=== PATIENT | male | born 1965 | race Caucasian/White ===

== ENCOUNTER 2021-07-24 12:49 | Emergency (ER) | payer OTHER ==
[~2021-07-24] VITALS: Ht 180.3 cm; Wt 80.7 kg
[~2021-07-24 12:49] MED LIST: PRILOSEC20 MG PO
== END 2021-07-24 15:28 | disposition home or self-care (01) ==
LOC: ED 12:49
DX: S63.125A Dislocation of interphalangeal joint of left thumb, initial encounter (principal); W22.8XXA Striking against or struck by other objects, initial encounter
CPT/HCPCS: 73140; 99283-25

== ENCOUNTER 2024-09-01 06:28 | Day surgery (SDC) | payer OTHER ==
[~2024-09-01] VITALS: Ht 180.3 cm; Wt 84.1 kg
[~2024-09-01 06:28] MED LIST changes: +MIDAZOLAM HCL 5 MG/5 ML VIAL IV PRN; +fentaNYL citrate 100 MCG/2 ML VIAL IV PRN
[2024-09-01 06:42] VITALS: BP 113/74
[2024-09-01] MEDS ORDERED: fentaNYL citrate 100 MCG/2 ML VIAL ONE (06:58)
[2024-09-01] MEDS ORDERED: MIDAZOLAM HCL 5 MG/5 ML VIAL ONE (06:58)
[2024-09-01] MEDS ORDERED: LACTATED RINGER'S 1,000 ML IV SCH (07:00)
[2024-09-01] MEDS ORDERED: IBLOOD GLUCOSE TEST STRIP 1 EA TEST VI PRN (07:00)
[2024-09-01] MEDS ORDERED: LIDOCAINE HCL 1% 5 ML SDV INJ ONE (07:00)
--- NOTE | 2024-09-01 08:24 | NUR ---
09/01/24 0824 Inés Reinoso 0815 PT ARRIVED IN PACU SLEEPY WITH NO C/O'S. ABD SOFT AND PASSING FLATUS. 08 RESTING. REU.
[2024-09-01 08:46] VITALS: BP 107/67
--- NOTE | 2024-09-02 12:42 | OR ---
[facility] [address] [place], [place] [address] Signed DATE OF OPERATION: 09/01/2024 SURGEON: Domenica Allen MD PREOPERATIVE DIAGNOSIS: Colon screening. POSTOPERATIVE DIAGNOSIS: Normal colon to cecum. PROCEDURE: Total colonoscopy to cecum. ANESTHESIA: Intravenous sedation, fentanyl 150 mcg, Versed 6 mg. INDICATIONS FOR THE PROCEDURE: This 59-year-old white man is patient of Dr. Duncan Courtney, who is referred for screening colonoscopy. He last underwent colonoscopy in 2012, which was normal. He has no current symptoms of bleeding, diarrhea, or constipation and no family history of colon cancer. He is admitted to undergo screening colonoscopy. He understands the risk of bleeding, infection, and perforation. FINDINGS: The prep was adequate. Complete colonoscopy was undertaken of the cecum with full intubation of the cecum. He had no evidence of polyps, diverticular formation, colitis, or cancer. Retroflexed view was normal as well. DESCRIPTION OF PROCEDURE: The patient was brought to the endoscopy suite and placed in lateral decubitus position, given intravenous sedation to the point of slurred speech and nystagmus. Digital rectal examination was normal. An Olympus video colonoscope was passed into the rectum and manipulated throughout the colon ultimately intubating the cecum itself. The ileocecal valve and appendiceal orifice were normal. Scope was withdrawn. Examination throughout showed no sign of abnormality, specifically no polyps, diverticular formation, colitis, or cancer. Retroflexed view was normal as well. The scope was removed. The patient taken to the recovery room in good condition. Electronically Signed By: DOMENICA ALLEN MD 09/02/24 1242 PATIENT NAME: NELI LI OPERATIVE REPORT DATE OF : 65 REPORT #: [id number] PHYSICIAN: DOMENICA ALLEN MD PCP: DUNCAN COURTNEY MD REPORT IS CONFIDENTIAL AND NOT TO BE RELEASED WITHOUT AUTHORIZATION [facility] [address] [facility] [place] [address] Signed CONCLUDING DIAGNOSIS: Normal colon to cecum. PLAN: Recommend repeat colonoscopy in 10 years, sooner if symptoms should develop. He will return to the ongoing care of Dr. Duncan Courtney. MD HIREN Levin/AIDENL /[id number] cc: Duncan Courtney MD Copies: DUNCAN COURTNEY DMD ~ Electronically Signed By: DOMENICA ALLEN MD 09/02/24 1242 PATIENT NAME: NELI LI OPERATIVE REPORT DATE OF : 65 REPORT #: [id number] PHYSICIAN: DOMENICA ALLEN MD PCP: DUNCAN COURTNEY MD REPORT IS CONFIDENTIAL AND NOT TO BE RELEASED WITHOUT AUTHORIZATION
== END 2024-09-01 08:52 | disposition home or self-care (01) ==
LOC: DS 06:28
PROVIDERS: ATTEND Surgery
PROC: 0DJD8ZZ Inspection of Lower Intestinal Tract, Via Natural or Artificial Opening Endoscopic (ICD-10-PCS; principal; 2024-09-01 07:30)
DX: Z12.11 Encounter for screening for malignant neoplasm of colon (principal)
CPT/HCPCS: 99153; G0500; J2250; J3010; J7121

== ENCOUNTER 2024-09-16 07:55 | Day surgery (SDC) | payer OTHER ==
[2024-09-11 16:17] VITALS: BP 123/78
[~2024-09-16] VITALS: Ht 180.3 cm; Wt 84.1 kg
--- NOTE | ~2024-09-16 | OR ---
[facility] [address] [place], [place] [address] Draft DATE OF OPERATION: 09/16/2024 SURGEON: Chavo See MD PREOPERATIVE DIAGNOSIS: Lower lip mucosal lesion. POSTOPERATIVE DIAGNOSIS: Lower lip mucosal lesion. PROCEDURE: Biopsy and destruction of lower lip mucosal lesion. ANESTHESIA: General, LMA; DIET TECHNICIAN REGISTERED, Alfonzo PREOP HISTORY: Mr. 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 This is a result of long-term chewing tobacco usage. This lesion has been watched for several years. It has gotten more prominent, thicker, some reddish areas to it recently and he is taken to the operating for the above-mentioned procedures. PROCEDURE AND FINDINGS: After informed consent, the patient was taken to the operating room, placed in supine position, where general LMA anesthesia was induced. The patient and procedure were verified. The patient was repositioned. Lower lip was retracted. The lesion in question measured about 3 or 4 cm in greatest diameter, started at the buccal gingival sulcus extended up onto the lip mucosa about two-thirds away to the vermilion. It extended laterally on either side about 2 cm. There were some reddish areas, mostly this was just thick whitish leukoplakic type tissue, fairly indurated, multiple biopsies were taken with Robin, 4-5 different areas and sent to Pathology in formalin. The bleeding was controlled with needle point cautery. The remainder of the leukoplakic area was cauterized superficially with a needle point cautery to destroy the superficial mucosa. Bleeding was minimal, stopped afterwards. The patient was then awakened, extubated, and transported to the recovery room in good condition. COMPLICATIONS: No complications. BLOOD LOSS: PATIENT NAME: NELI LI OPERATIVE REPORT DATE OF : 65 REPORT #: [id number] PHYSICIAN: CHAVO SEE MD PCP: DUNCAN COURTNEY MD REPORT IS CONFIDENTIAL AND NOT TO BE RELEASED WITHOUT AUTHORIZATION [address] [place], [place] [address] Draft Minimal. SPECIMEN: To Pathology. DRAINS: No drains. Chavo See MD GC/MAEVE /[id number] Copies: ~ PATIENT NAME: NELI LI OPERATIVE REPORT DATE OF : 65 REPORT #: [id number] PHYSICIAN: CHAVO SEE MD PCP: DUNCAN COURTNEY MD REPORT IS CONFIDENTIAL AND NOT TO BE RELEASED WITHOUT AUTHORIZATION
[~2024-09-16 07:55] MED LIST changes: +IBLOOD GLUCOSE TEST STRIP 1 EA TEST VI PRN; +LACTATED RINGER'S 1,000 ML IV SCH; +LIDOCAINE 1% W/ EPI 1:100,000 20 ML MDV ONE; +LIDOCAINE HCL 1% 5 ML SDV INJ ONE; -MIDAZOLAM HCL 5 MG/5 ML VIAL IV PRN; -fentaNYL citrate 100 MCG/2 ML VIAL IV PRN
--- NOTE | 2024-09-16 08:03 | NUR ---
VISITED DURING SPIRITUAL CARE ROUNDS. PT IN OVERALL GOOD SPIRITS; NO IMMEDIATE NEEDS. CARDIOLOGY ASSOCIATE PROVIDED SUPPORTIVE PRESENCE, PRAYER. PT EXPRESSED GRATITUDE.
[2024-09-16 08:10] VITALS: BP 114/73
[2024-09-16] MEDS ORDERED: propofoL 200 MG/20 ML VIAL ONE (09:06)
[2024-09-16] MEDS ORDERED: DEXAMETHASONE SOD PHOS 4 MG/ML VIAL ONE (09:06)
[2024-09-16] MEDS ORDERED: LIDOCAINE HCL 2% 5 ML SDV ONE (09:06)
[2024-09-16] MEDS ORDERED: KETOROLAC TROMETHAMINE 30 MG/ML VIAL ONE (09:06)
[2024-09-16] MEDS ORDERED: ondansetron HCL 4 MG/2 ML VIAL ONE (09:06)
[2024-09-16] MEDS ORDERED: fentaNYL citrate 100 MCG/2 ML VIAL ONE (09:06)
[2024-09-16] MEDS ORDERED: HYDROCODONE/ACETA 5/325 TAB PO PRN (10:00)
--- NOTE | 2024-09-16 10:00 | NUR ---
09/16/24 1000 Sheets,Gudelia 0941 PT ARRIVED TO PACU ON 6L VIA MASK WITH ORAL AIRWAY IN PLACE, CHIN LIFT USED OFF AND ON TO MAINTAIN AIRWAY. RESP EVEN AND UNLABORED BUT DECREASED RATE. 0948 PT WOKE TO VERBAL STIMULI AND ORAL AIRWAY REMOVED. PT DENIES CONCERNS, PT REPROTS PAIN /10 AND NO NAUSEA. 0949 MD AT BEDSIDE TALKING TO PT. 0955 PT SIPPING WATER WITH NO CONCERNS.
--- NOTE | 2024-09-16 10:05 | NUR ---
PT TO DS FROM PACU VIA STRETCHER. PT IS A&O AND ASKING APPROPRIATE QUESTIONS AT THIS TIME. PT REPORTS PAIN TOLERABLE AT 4/10 AND STATES NO NEED FOR PRN PAIN MEDS AT THIS TIME. PT TOLERATING ICE WATER WITHOUT DIFFICULTY SWALLOWING OR REPORTED NAUSEA. PUDDING PROVIDED. CALL LIGHT WITHIN REACH. PT STATES NO FURTHER NEEDS OR QUESTIONS AT THIS TIME.
[2024-09-16 10:06] VITALS: BP 131/83
--- NOTE | 2024-09-16 10:51 | NUR ---
IN PT ROOM FOR PAIN ASSESSMENT. PT REPORTS PAIN REMAINS TOLERABLE AND NO NEED FOR PRN PAIN MED AT THIS TIME. PT TOLERATED 100% OF PUDDING AND ICE WATER WITH NO ONSET OF NAUSEA. PT GETTING DRESSED AT THIS TIME, CALL LIGHT WITHIN REACH. CALLED AND UPDATED, SHE WILL PULL CAR AROUND.
[2024-09-16 10:58] VITALS: BP 120/82
--- NOTE | 2024-09-16 11:00 | NUR ---
IN PT ROOM FOR DC EDUCATION AND VS. PT STATES VERBAL UNDERSTANDING TO DC EDUCATION AT THIS TIME AND NO FURTHER QUESTIONS OR NEEDS. PT OFF OF UNIT VIA WC TO PASSENGER SIDE OF 'S VEHICLE. PT REPORTS NO FURTHER NEEDS AT THIS TIME. ALL BELONGINGS IN PT POSSESSION AT THIS TIME.
[2024-09-16] MEDS ORDERED: SEVOFLURANE 250 ML BTL INH ONE (11:12)
--- NOTE | 2024-09-18 14:06 | PATH ---
[facility] [address] [facility] [place], [place] [address] Signed SPECIMEN(S): A LOWER LIP MUCOSA LESION SPECIMEN SOURCE: A. LOWER LIP MUCOSA LESION CLINICAL HISTORY: Lower lip mucosal lesion FINAL PATHOLOGIC DIAGNOSIS: Mucosa, lower lip, biopsy: - Squamous mucosa with hyperkeratosis; negative for dysplasia or malignancy BRP MICROSCOPIC EXAMINATION: Histologic sections of all submitted blocks are examined by light microscopy. These findings, together with the gross examination, support the pathologic diagnosis. GROSS DESCRIPTION: The specimen, labeled and designated "Adithya Li, lower lip mucosal lesion," is received in formalin and consists of 3 ferraro tissue fragments ranging from 0.3 to 0.5 cm in greatest dimension. The specimen is entirely submitted in cassette A1. AA (under the direct supervision of a pathologist) The Gross Description was prepared using a voice recognition system. The report was reviewed for accuracy; however, sound-alike word errors, addition and/or deletions may occur. If there is any question about this report, please contact Client Services. ADDITIONAL NOTES: Immunohistochemical and/or in situ hybridization studies if performed in this case included appropriate positive controls that reacted as expected. This test was developed and its performance characteristics determined by [facility]. It has not been cleared or approved by the U.S. Food and Drug Administration. The FDA has determined that such clearance or approval is not necessary. This test is used for clinical purposes. It should not be regarded as investigational or for research. [facility] is certified under the Clinical Laboratory Improvement Amendments of 1988 (CLIA) as qualified to perform high complexity clinical laboratory testing. PATIENT NAME: NELI LI PATHOLOGY DATE OF : 65 REPORT #: [id number] PHYSICIAN: KILEY PATHOLOGY PCP: DUNCAN COURTNEY MD REPORT IS CONFIDENTIAL AND NOT TO BE RELEASED WITHOUT AUTHORIZATION [facility] [address] [facility] [place], [place] [address] Signed PERFORMING LABORATORY: Technical component was performed by [facility], [address] [place] [address] (CLIA# [id number]). Professional interpretation was performed by [facility] - [facility][Note 3], [address] [place] [address] (CLIA#: [id number]). Diagnostician: Hermelindo Gonzales MD Pathologist Electronically Signed 09/18/2024 Copies: ~ PATIENT NAME: NELI LI PATHOLOGY DATE OF : 65 REPORT #: [id number] PHYSICIAN: KILEY BARRON PCP: DUNCAN COURTNEY MD REPORT IS CONFIDENTIAL AND NOT TO BE RELEASED WITHOUT AUTHORIZATION
== END 2024-09-16 11:05 | disposition home or self-care (01) ==
LOC: OPS 07:55 → DS 07:55 → OPS 09:30
PROVIDERS: ATTEND Otolaryngology
DX: K13.0 Diseases of lips (principal)
CPT/HCPCS: 00170; J1100; J1885; J2003; J2405; J2704; J3010; J7121